=== PATIENT | female | born 1970 | race Two or more races ===

== ENCOUNTER → 2025-01-27 | Outpatient (CLI) | payer MEDICAID, SELFPAY ==
--- NOTE | 2025-01-27 11:30 | XR_ITS ---
EXAMINATION: Ultrasound liver elastography Date and time: January 27, 2025, 1121 hours INDICATIONS: Fatty liver with abnormal liver function test on laboratory examination performed 1 month ago. TECHNIQUE AND FINDINGS: FINDINGS: Liver 12.0 cm no focal liver lesions, fatty infiltration is present Normal Portal venous flow Patent hepatic veins Tissue stiffness average 1.1 m/s normal range IMPRESSION: Negative for liver fibrosis
== END | disposition home or self-care (01) ==
PROVIDERS: PCP Physician Assistant; Referring Provider Physician Assistant; Visit Provider Physician Assistant
DX: K76.0 Fatty (change of) liver, not elsewhere classified (principal)
CPT/HCPCS: 76981